=== PATIENT | male | born 1980 | race Caucasian/White ===

== ENCOUNTER 2018-04-09 16:30 | Emergency (ER) | payer OTHER ==
[2018-04-09] MEDS: cefTRIAXone 1 GM Vial IM ONE (16:58)
--- NOTE | 2018-04-09 17:03 | EDM.PDOC ---
ED HPI GENERAL MEDICAL PROBLEM - General Chief Complaint: ENT Problem Stated Complaint: toothache and facial swelling Time Seen by Provider: 04/09/18 16:57 Source of Information: Reports: Patient History Limitations: Reports: No Limitations - History of Present Illness INITIAL COMMENTS - FREE TEXT/NARRATIVE: Patient is a 37-year-old gentleman who presents to the emergency department this afternoon with a complaint of right upper jaw dental pain. Patient has chronic dental issues. However, yesterday developed worsening pain. Patient states that the right cheek hurts also. Patient is taking ibuprofen for pain relief. Patient denies fever, nausea, vomiting, any trauma, or difficulty swallowing. Patient states he has an appointment with his dentist next week. 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 Constitutional: Reports: No Symptoms HEENT: Reports: Dental Pain Respiratory: Reports: No Symptoms Cardiovascular: Reports: No Symptoms Endocrine: Reports: No Symptoms GI/Abdominal: Reports: No Symptoms : Reports: No Symptoms Musculoskeletal: Reports: No Symptoms Skin: Reports: No Symptoms Neurological: Reports: No Symptoms Psychiatric: Reports: No Symptoms Hematologic/Lymphatic: Reports: No Symptoms Immunologic: Reports: No Symptoms ED EXAM, ENT - Physical Exam Exam: See Below Exam Limited By: No Limitations General Appearance: Alert, WD/WN, No Apparent Distress Nose: Normal Inspection, Normal Mucousa, No Blood. No: Nasal Swelling, Septal Deformity Mouth/Throat: Dental Pain, Dental Tenderness, Other (Extensive dental erosion with multiple dental stubs and missing teeth. No erythema, edema, or abscess visualized ). No: Dental Abcess, Drooling, Hoarse Voice, Muffled Voice, Peritonsillar Mass, Pharyngeal Erythema, Tonsillar Erythema, Tonsillar Exudates , Tonsillar Swelling, Trismus, Uvular Deviation, Uvular Edema Head: Atraumatic, Normocephalic Neck: Normal Inspection, Supple, Non-Tender. No: Lymphadenopathy (L), Lymphadenopathy (R) Respiratory/Chest: No Respiratory Distress, Lungs Clear Cardiovascular: Regular Rate, Rhythm Neurological: Alert, Oriented, Normal Cognition Psychiatric: Normal Affect, Normal Mood Skin: Warm, Dry, Intact, Normal Color, No Rash Lymphatic: No Adenopathy Course - Vital Signs Last Recorded V/S: Last Vital Signs Temp 99.5 F 04/09/18 16:42 Pulse 67 04/09/18 16:42 Resp 18 04/09/18 16:42 BP 153/84 H 04/09/18 16:42 Pulse Ox 98 04/09/18 16:42 - Orders/Labs/Meds Orders: Active Orders 24 hr Category Date Time Status cefTRIAXone [Rocephin] Med 04/09/18 16:58 Once 1 gm IM ONETIME ONE - Re-Assessments/Exams Free Text/Narrative Re-Assessment/Exam: 04/09/18 17:03 Patient afebrile, nontoxic appearing, vital signs stable, taking by mouth fluids. Patient given 1 g Rocephin IM. Patient will return to the emergency department within 24 hours for recheck. Patient has a follow-up appointment with the dentist next week. Departure - Departure Time of Disposition: 17:04 Disposition: Home, Self-Care 01 Condition: Good Clinical Impression: Dental caries, Toothache - Discharge Information Instructions: Preventive Dental Care, Adult, Tooth Injuries, [id number] Referrals: Katty Spain, INTER[employer] [Primary Care Provider] - Additional Instructions: Return to the emergency department in 24 hours for recheck or sooner if symptoms continue or worsen. - My Orders Last 24 Hours: My Active Orders 04/09/18 16:58 cefTRIAXone [Rocephin] 1 gm IM ONETIME ONE - Assessment/Plan Last 24 Hours: My Active Orders 04/09/18 16:58 cefTRIAXone [Rocephin] 1 gm IM ONETIME ONE Assessment:: Toothache, dental caries Plan: Return to emergency treatment in 24 hours for recheck
[2018-04-09] MEDS: Lidocaine 1% 20 ML MDV ONE (17:07)
[2018-04-09] MEDS: cefTRIAXone 1 GM Vial ONE (17:07)
== END 2018-04-09 17:25 | disposition home or self-care (01) ==
LOC: KA.ED 16:30
DX: K02.9 Dental caries, unspecified (principal)
CPT/HCPCS: 96372; 99282; J0696

== ENCOUNTER 2018-04-13 02:50 | Emergency (ER) | payer SELFPAY ==
[2018-04-13] MEDS: Ondansetron 4 MG Tab.DIS ONE ×2 (03:47)
[2018-04-13] MEDS: Ondansetron 4 MG Tab.DIS PO PRN (03:47)
--- NOTE | 2018-04-13 03:54 | EDM.PDOC ---
ED HPI GENERAL MEDICAL PROBLEM - General Chief Complaint: Abdominal Pain Stated Complaint: abd pain Time Seen by Provider: 04/13/18 03:20 Source of Information: Reports: Patient History Limitations: Reports: No Limitations - History of Present Illness INITIAL COMMENTS - FREE TEXT/NARRATIVE: Patient presents with complaint of vomiting that started 1.5 hours ago (1:30 am ) and he says can't keep anything down. He had diarrhea through the day yesterday. He had quite a bit of abdominal pain while vomiting but that feels okay now. He says three days ago he was in ER with a toothache and has been taking amoxicillin and tramadol and the toothache is gone now. He came to the ER less than 18 hours ago with complaint of fever but left without being evaluated because the fever dropped and he wanted to go to a wedding. He tells me that the fever spiked one more time at home but then broke after chills and sweating. I asked if there is anything else going on and he says no just that. Abdominal Pain Score (Numeric/FACES): 10 - Related Data Allergies Allergy/AdvReac Type Severity Reaction Status Date / Time No Known Drug Allergies Allergy Other Verified 04/13/18 02:59 Home Meds: Home Meds Amoxicillin/Clavulanate K [Augmentin 875-125 MG] 1 tab PO BID #20 tablet [Rx] Ibuprofen 800 mg PO Q4H PRN 04/09/18 [History] Acetaminophen [Tylenol] 325 - 650 mg PO Q4H PRN 04/12/18 [History] Past Medical History HEENT History: Reports: Impaired Vision, Other (See Below) Other HEENT History: right toothache upper Gastrointestinal History: Reports: None Psychiatric History: Reports: Anxiety - Infectious Disease History Infectious Disease History: Reports: Chicken Pox - Past Surgical History HEENT Surgical History: Reports: Oral Surgery GI Surgical History: Reports: Appendectomy Social & Family History - Tobacco Use Smoking Status *Q: Current Every Day Smoker Years of Tobacco use: 22 Packs/Tins Daily: 1 - Caffeine Use Caffeine Use: Reports: Coffee Other Caffeine Use: regular - Alcohol Use Date of Last Drink: 03/04/18 - Recreational Drug Use Recreational Drug Use: No ED ROS GENERAL - Review of Systems Review Of Systems: See Below Constitutional: Reports: Chills. Denies: Fever, Decreased Appetite HEENT: Reports: No Symptoms Respiratory: Reports: No Symptoms. Denies: Shortness of Breath Cardiovascular: Reports: No Symptoms. Denies: Chest Pain, Lightheadedness, Syncope Endocrine: Reports: No Symptoms GI/Abdominal: Reports: Diarrhea, Nausea, Vomiting. Denies: Abdominal Pain ( gone now) : Denies: Flank Pain Musculoskeletal: Reports: No Symptoms Skin: Denies: Cyanosis, Jaundice, Mottled, Pallor Neurological: Denies: Confusion, Dizziness, Headache, Seizure, Syncope, Trouble Speaking, Difficulty Walking Psychiatric: Denies: Agitation, Confusion ED EXAM, GI/ABD - Physical Exam Exam: See Below Exam Limited By: No Limitations General Appearance: Alert, WD/WN, No Apparent Distress Eyes: Bilateral: Normal Appearance, EOMI Ears: Normal External Exam, Hearing Grossly Normal Nose: Normal Inspection, No Blood Throat/Mouth: Normal Inspection, Normal Lips, Normal Voice, No Airway Compromise Head: Atraumatic, Normocephalic Neck: Normal Inspection, Supple, Non-Tender, Full Range of Motion Respiratory/Chest: No Respiratory Distress, Lungs Clear, Normal Breath Sounds Cardiovascular: Regular Rate, Rhythm, No Murmur GI/Abdominal Exam: Normal Bowel Sounds, Soft, No Organomegaly, No Distention, Tender (mild, non-focal tenderness but benign feeling abdomen). No: Distended, Rigid Back Exam: Normal Inspection, Full Range of Motion. No: CVA Tenderness (L), CVA Tenderness (R) Extremities: Normal Inspection, Normal Range of Motion Neurological: Alert, Oriented, Normal Cognition, No Motor/Sensory Deficits Psychiatric: Normal Affect, Normal Mood Skin Exam: Warm, Dry, Intact, Normal Color, No Rash Course - Vital Signs Last Recorded V/S: Last Vital Signs Temp 98.0 F 04/13/18 02:50 Pulse 107 H 04/13/18 02:50 Resp 26 H 04/13/18 02:50 BP 171/110 H 04/13/18 02:50 Pulse Ox 99 04/13/18 02:50 - Orders/Labs/Meds Orders: Active Orders 24 hr Category Date Time Status Ondansetron [Zofran ODT] Med 04/13/18 03:38 Ordered 4 mg PO ONETIME PRN Medication Orders Ondansetron HCl (Zofran Odt) 4 mg PO ONETIME PRN PRN Reason: nausea or vomiting Meds: Medications Generic Name Dose Route Start Last Admin Trade Name Cory PRN Reason Stop Dose Admin Ondansetron HCl 4 mg 04/13/18 03:38 Zofran Odt PO ONETIME PRN nausea or vomiting - Re-Assessments/Exams Free Text/Narrative Re-Assessment/Exam: 04/13/18 03:59 I discussed with patient that vomiting and diarrhea generally have to run their course for a few days and the primary concern is to avoid dehydration. He should follow up with his PCP if this persists or recheck with PCP or ER if worsening significantly or has dehydration concerns. Right now patient is feeling okay and is just tired. Pt discharged to home in stable condition with a few Zofran to use prn. Departure - Departure Time of Disposition: 03:42 Disposition: Home, Self-Care 01 Condition: Good Clinical Impression: Nausea, vomiting and diarrhea - Discharge Information Instructions: Nausea and Vomiting, Adult, [id number] Additional Instructions: 1. Drink 6-8 cups of water daily. 2. Use the Zofran to control nausea and vomiting as needed but mostly let it run its course for at least 48 hours. 3. Follow up with your PCP if worsening or if symptoms persist longer than 4-5 days. - My Orders Last 24 Hours: My Active Orders 04/13/18 03:38 Ondansetron [Zofran ODT] 4 mg PO ONETIME PRN - Assessment/Plan Last 24 Hours: My Active Orders 04/13/18 03:38 Ondansetron [Zofran ODT] 4 mg PO ONETIME PRN
== END 2018-04-13 03:55 | disposition home or self-care (01) ==
LOC: KA.ED 02:50
DX: R19.7 Diarrhea, unspecified (principal); R11.2 Nausea with vomiting, unspecified; F17.210 Nicotine dependence, cigarettes, uncomplicated
CPT/HCPCS: 99283; A9270-GY